=== PATIENT | male | born 1995 | race Caucasian/White ===

== ENCOUNTER → 2016-10-10 | Outpatient (CLI) | payer OTHER ==
[~2016-10-10] MED LIST: DEXM10TA PO; FLUO40CA8 PO; LEVE500T13 PO; ONDA4TAB7 SL; SRQ/100 PO
[2016-10-10 15:13] LABS: CHOLESTEROL/HDL RATIO 1.9
== END | disposition home or self-care (01) ==
LOC: C.LAB1850 13:44
PROVIDERS: ATTEND Psychiatry & Neurology Child & Adolescent Psychiatry
DX: Z79.899 Other long term (current) drug therapy (principal); F33.1 Major depressive disorder, recurrent, moderate

== ENCOUNTER → 2017-01-08 | Outpatient (CLI) | payer OTHER ==
--- NOTE | 2017-01-09 22:53 | MOTOR CONDUCTION ---
FOR: Jennifer Choi. CLINICAL DIAGNOSIS: History of seizures. EEG DIAGNOSIS: Abnormal EEG with 4-5 Hz short duration bursts of generalized spike and wave activity during wakefulness and brief duration of drowsiness without clinical accompaniments. DESCRIPTION OF TRACING: This EEG was done as a laboratory study and is of excellent quality with few or no muscle or movement artifacts. A simultaneous video analysis of patient movement and behavior was obtained. Photic stimulation was performed. Hyperventilation was not. Drowsiness is recorded episodically. During wakefulness, there is evidence for normal appearing background rhythm in the alpha range of up to 10 Hz in maximum frequency and 30 microvolts of maximum amplitude. This is maximum posterior head regions and bilaterally symmetrical. Polymorphic mid frequency theta activity is seen over all head regions without clear focal or regional predominance. Anterior head region maximal bilaterally symmetrical low voltage fast activity in the beta range is present. Photic stimulation provokes no significant driving response and no photomyogenic or photoparoxysmal component is seen. Major abnormal feature of tracing occurs 5 or 6 times during the recording and consists of short duration, i.e., 1 to utmost 1-1/2 to 2-second bursts of 4-5 Hz spike and wave activity occurring in a generalized fashion without clinical accompaniments noted on video analysis. INTERPRETATION: This EEG is abnormal in a fashion that would be consistent with the diagnosis of primary generalized epilepsy characterized by the appearance of generalized 4-5 Hz bursts of spike and wave activity during wakefulness and brief duration drowsiness. Again, no clinical accompaniments are noted. So the pattern is indicative of potentially epileptogenic activity without recording of actual electroencephalographic and clinical seizures. Clinical correlation is required.
== END | disposition home or self-care (01) ==
LOC: C.NEUR 13:00
PROVIDERS: ATTEND Internal Medicine
DX: R56.9 Unspecified convulsions (principal)